=== PATIENT | male | born 1965 | race Caucasian/White ===

== ENCOUNTER 2021-12-21 10:52 | Emergency (ER) | payer OTHER ==
[2021-12-21 10:58] VITALS: BP 186/91; PULSE 83; TEMP 98.2; BMI 29.5
[2021-12-21] MEDS ORDERED: methaDONE HCL 10 MG TABLET (FOR DETOX USE ONLY) PO ONE (12:00)
[2021-12-21] MEDS ORDERED: methaDONE HCL 40 MG DISPERSABLE TABLET ONE (12:20)
[2021-12-21] MEDS ORDERED: methaDONE HCL 10 MG TABLET ONE (12:20)
== END 2021-12-21 12:32 | disposition home or self-care (01) ==
LOC: JERFT 10:52
DX: Z79.891 Long term (current) use of opiate analgesic (principal)
CPT/HCPCS: 99283-25

== ENCOUNTER 2021-12-22 10:24 | Emergency (ER) | payer OTHER ==
[2021-12-22 10:38] VITALS: BP 165/77; PULSE 68; TEMP 97.7; BMI 28.8
[2021-12-22] MEDS ORDERED: methaDONE HCL 10 MG TABLET (FOR DETOX USE ONLY) PO ONE (11:58)
[2021-12-22] MEDS ORDERED: methaDONE HCL 40 MG DISPERSABLE TABLET ONE (12:07)
[2021-12-22] MEDS ORDERED: methaDONE HCL 10 MG TABLET ONE (12:07)
== END 2021-12-22 12:31 | disposition home or self-care (01) ==
LOC: JERFT 10:24
DX: Z76.0 Encounter for issue of repeat prescription (principal)
CPT/HCPCS: 99283-25